=== PATIENT | male | born 1970 | race Caucasian/White ===

== ENCOUNTER 2017-05-23 14:31 | Emergency (ER) | payer BC ==
[2017-05-23 14:35] VITALS: BP 154/85
[2017-05-23] MEDS ORDERED: Colchicine 0.6 MG Tab PO ONE (14:41)
--- NOTE | 2017-05-23 15:07 | EDM.PDOC ---
ED HPI GENERAL MEDICAL PROBLEM - General Chief Complaint: Lower Extremity Injury/Pain Stated Complaint: ankle pain Time Seen by Provider: 05/23/17 14:38 Source of Information: Reports: Patient History Limitations: Reports: Other (very poor with history) - History of Present Illness INITIAL COMMENTS - FREE TEXT/NARRATIVE: Patient comes in by private vehicle for evaluation of pain on dorsal left foot. Says it started yesterday morning and he noticed it when he woke up from sleep. No specific trauma to area. Injured same part of foot years ago due to lawnmower. It usually is not a problematic area for him. Denies fevers/chills. No neuro changes. No previous similar episodes. Patient without any other complaints. O2 sat 93%. He is without sensation of SOB or respiratory complaints. - Related Data Allergies Allergy/AdvReac Type Severity Reaction Status Date / Time No Known Allergies Allergy Verified 02/19/16 12:45 Home Meds: Home Meds Colchicine [Colcrys] 0.6 mg PO ONETIME #1 tablet 05/23/17 [Rx] Enalapril [Vasotec] 10 mg PO DAILY 05/23/17 [History] Past Medical History HEENT History: Reports: Impaired Vision Cardiovascular History: Reports: Hypertension. Denies: Arrhythmia, Blood Clots/ VTE/DVT, CAD, Heart Murmur, High Cholesterol (status unknown), [place], Pacemaker Gastrointestinal History: Reports: Other (See Below) Other Gastrointestinal History: history of possible esophageal stenosis with recurrent foreign body lodging with only previous episode on 10/23/11 Genitourinary History: Reports: None. Denies: Chronic Renal Insuffiency, Renal Calculus, STD, Urinary Incontinence, UTI, Recurrent Musculoskeletal History: Reports: Fracture (avulsion fracture over the dorsal surface of the left foot secondary to a lawnmower accident at age 9). Denies: Arthritis, Back Pain, Chronic, Gout, Neck Pain, Chronic, Osteoarthritis, RA, SLE Neurological History: Reports: None. Denies: Cerebral Aneurysms, Concussion, CVA, Headaches, Chronic, Migraines, Seizure, TIA, Vertigo Psychiatric History: Reports: None. Denies: Abuse, Victim of, ADD, Anxiety, Depression, Psych Hospitalization(s), Suicide Attempt, Suicidal Ideation Hematologic History: Reports: None. Denies: Anemia, Blood Transfusion(s) Immunologic History: Reports: None. Denies: AIDS, HIV, SLE Oncologic (Cancer) History: Reports: None Dermatologic History: Reports: None. Denies: Eczema, Psoriasis - Infectious Disease History Infectious Disease History: Reports: None, Chicken Pox - Past Surgical History Head Surgeries/Procedures: Reports: None HEENT Surgical History: Reports: None. Denies: Adenoidectomy, Eye Surgery, Laser Surgery, Myringotomy w Tube(s), Naso-Sinus Surgery, Oral Surgery, Tonsillectomy Cardiovascular Surgical History: Reports: None. Denies: Varicose, Vascular Surgery Respiratory Surgical History: Reports: None. Denies: Lung Biopsies Male Surgical History: Reports: Circumcision (as an ). Denies: Vasectomy Endocrine Surgical History: Reports: None. Denies: Thyroid Biopsy Neurological Surgical History: Reports: None Musculoskeletal Surgical History: Reports: None. Denies: Amputation, Arthroscopic Procedure, Carpal Tunnel, Ganglion Cyst, ORIF Oncologic Surgical History: Reports: None Dermatological Surgical History: Reports: None - Past Imaging History Past Imaging History: Reports: None Social & Family History - Tobacco Use Smoking Status *Q: Never Smoker Second Hand Smoke Exposure: No - Caffeine Use Caffeine Use: Reports: Energy Drinks, Soda - Alcohol Use Days Per Week of Alcohol Use: 1 (No previous DWIs, problems with alcohol abuse, etc.) Number of Drinks Per Day: 2 (usually beer) Total Drinks Per Week: 2 - Recreational Drug Use Recreational Drug Use: No - Living Situation & Occupation Living situation: Reports: , Alone Occupation: Employed Review of Systems - Review of Systems Review Of Systems: ROS reveals no pertinent complaints other than HPI. ED EXAM, GENERAL - Physical Exam Exam: See Below Exam Limited By: No Limitations General Appearance: Alert, No Apparent Distress, Obese Eye Exam: Bilateral Eye: EOMI, PERRL Throat/Mouth: Normal Voice, No Airway Compromise Head: Atraumatic, Normocephalic Neck: Supple Respiratory/Chest: No Respiratory Distress Neurological: Alert, Oriented, No Motor/Sensory Deficits, Other (Has discomfort from left foot when walking. ) Psychiatric: No: Anxious, Depressed Mood, Flat Affect, Tearful Skin Exam: Warm, Dry, Other (Focal circular area of swelling, redness, mild warmth mid dorsal left foot. Nearby scar tissue noted from old lawnmower accident. No pustules/vesicles/drainage. Overlying skin intact. Foot and ankle otherwise non-tender. Good ROM. ) Course - Vital Signs Last Recorded V/S: Last Vital Signs Temp 36.9 C 05/23/17 14:34 Pulse 93 05/23/17 14:34 Resp 16 05/23/17 14:34 BP 154/85 H 05/23/17 14:34 Pulse Ox 93 L 05/23/17 14:34 - Orders/Labs/Meds Orders: Active Orders 24 hr Category Date Time Status Foot 2V Lt [CR] Stat Exams 05/23/17 14:40 Taken Labs: Laboratory Tests 05/23/17 Range/Units 15:15 Uric Acid 6.3 (2.6-7.2) mg/dL Meds: Medications Discontinued Medications Generic Name Dose Route Start Last Admin Trade Name Sandra PRN Reason Stop Dose Admin Colchicine 0.6 mg 05/23/17 14:41 05/23/17 14:58 Colcrys PO 05/23/17 14:42 0.6 mg ONETIME ONE Administration - Radiology Interpretation Free Text/Narrative:: Xray of foot shows residual bony damage from lawnmower incident vs bone spur in same area. - Re-Assessments/Exams Free Text/Narrative Re-Assessment/Exam: 05/23/17 15:15 Uncertain specific cause for focal redness/pain and swelling. May be secondary to gout. Does not appear to be infectious at this time. Conservative treatment for now and observe for changes. [employer] work slip completed. No work for two days. To follow up with [facility]/primary provider on Wednesday for recheck. Numerous precautions given to patient prior to discharge. He is to return to the ER if any obvious signs of infection develop. Departure - Departure Time of Disposition: 15:30 Disposition: Home, Self-Care 01 Condition: Good Clinical Impression: Left foot pain - Discharge Information Prescriptions: Colchicine [Colcrys] 0.6 mg PO ONETIME #1 tablet Instructions: Gout, [id number] Referrals: PCP,Unknown [Primary Care Provider] - Forms: ED Department Discharge Additional Instructions: Call and make appointment to be followed up and rechecked at clinic on Wednesday. Watch for changes. If you develop fever, drainage, or streaking of red from bump of left foot, get seen again in ER. Take second pill tomorrow morning after you pick it up from the pharmacy. Activity as tolerated. - My Orders Last 24 Hours: My Active Orders 05/23/17 14:40 Foot 2V Lt [CR] Stat - Assessment/Plan Last 24 Hours: My Active Orders 05/23/17 14:40 Foot 2V Lt [CR] Stat
== END 2017-05-23 14:51 | disposition home or self-care (01) ==
LOC: LL.ED 14:31
DX: M79.672 Pain in left foot (principal); I10 Essential (primary) hypertension
CPT/HCPCS: 36415; 73620; 84550; 99283; A9270

== ENCOUNTER 2017-11-22 13:06 | Emergency (ER) | payer BC ==
--- NOTE | 2017-11-22 13:16 | EDM.PDOC ---
ED HPI GENERAL MEDICAL PROBLEM - General Chief Complaint: Gastrointestinal Problem Stated Complaint: cant swallow/ food stuck in throat Time Seen by Provider: 11/22/17 13:15 Source of Information: Reports: Patient, Old Records ([facility] chart/EMR) History Limitations: Reports: No Limitations - History of Present Illness INITIAL COMMENTS - FREE TEXT/NARRATIVE: Patient with a history of severe dysphagia without aspiration with symptoms starting at about 11 AM at work this morning after he ate a meatball. He did have one episode of emesis subsequent to this event with no current nausea, however he is uncertain whether or not he is still having problems with dysphagia. He did have a similar episode with evaluation by me in this facility on 02/19/16, however he never did follow-up with his regular provider concerning this problem. No recent history of abdominal pain, heartburn, diarrhea, melena, gross hematochezia, or any food intolerance, including fatty foods, etc. with normal bowel movement yesterday. The patient denies any chest pain/pressure, heart flutter, dizziness, orthostasis, orthopnea, diaphoresis, paresthesias, recent decreased exercise tolerance, or any other anginal-type symptoms. No recent history of abdominal pain, heartburn, nausea, diarrhea, melena, gross hematochezia, or any food intolerance, including fatty foods, etc.. He denies any pain or discomfort Onset: Today, Sudden Onset Date: 11/22/17 Onset Time: 11:00 Duration: Constant, Improving Location: Reports: Other (No pain) Quality: Reports: Same as Previous Episode Improves with: Reports: None Worsens with: Reports: None Context: Reports: Other (As above) Associated Symptoms: Reports: Nausea/Vomiting. Denies: Confusion, Chest Pain, Cough, Diaphoresis, Fever/Chills, Loss of Appetite, Malaise, Seizure, Shortness of Breath, Syncope, Weakness Treatments PHARM SPEC: Reports: Other (see below) (None) - Related Data Allergies Allergy/AdvReac Type Severity Reaction Status Date / Time No Known Allergies Allergy Verified 11/22/17 13:13 Home Meds: Home Meds Enalapril [Vasotec] 10 mg PO DAILY 05/23/17 [History] Omeprazole 20 mg PO BIDAC #60 cap.sr 11/22/17 [Rx] Past Medical History HEENT History: Reports: Impaired Vision, Other (See Below). Denies: Allergic Rhinitis, Cataract, Glaucoma, Hard of Hearing, Macular Degeneration, Retinal Detachment Other HEENT History: Patient wears glasses Cardiovascular History: Reports: Hypertension, Other (See Below). Denies: Afib , Aneurysm, Arrhythmia, Blood Clots/VTE/DVT, CAD, Heart Murmur, High Cholesterol , [place], Pacemaker, Syncope Other Cardiovascular History: He does not know his cholesterol status Respiratory History: Reports: None. Denies: Asthma, COPD, Intubation, Previous , PE, Pneumothorax, Sleep Apnea Gastrointestinal History: Reports: GERD, Other (See Below). Denies: Celiac Disease, Cholelithiasis, Chronic Constipation, Chronic Diarrhea, Fecal Incontinence, Gastritis, GI Bleed, Hepatitis, Hiatal Hernia, Irritable Bowel Syndrome, Jaundice, Pancreatitis, PUD Other Gastrointestinal History: history of possible esophageal stenosis and recurrent dysphasia with recurrent foreign body lodging, including food, medications, etc. with previous episode on 10/23/11 and then again on 02/19/16 Genitourinary History: Reports: None. Denies: BPH, Chronic Renal Insuffiency, Renal Calculus, STD, Urinary Incontinence, UTI, Recurrent Musculoskeletal History: Reports: Fracture (avulsion fracture over the dorsal surface of the left foot secondary to a lawnmower accident at age 9), Other ( See Below). Denies: Arthritis, Back Pain, Chronic, Gout, Neck Pain, Chronic, Osteoarthritis, RA, SLE Other Musculoskeletal History: Avulsion fracture over the dorsal surface of the left foot secondary to lawnmower accident at age 9 Neurological History: Reports: None. Denies: Cerebral Aneurysms, Concussion, CVA, Headaches, Chronic, Migraines, Seizure, TIA, Vertigo Psychiatric History: Reports: None. Denies: Abuse, Victim of, ADD, Anxiety, Depression, Psych Hospitalization(s), Suicide Attempt, Suicidal Ideation Endocrine/Metabolic History: Reports: Obesity/BMI 30+. Denies: Diabetes, Type I , Diabetes, Type II, Hypothyroidism, IDDM Hematologic History: Reports: None. Denies: Anemia, Blood Transfusion(s) Immunologic History: Reports: None. Denies: AIDS, HIV, SLE Oncologic (Cancer) History: Reports: None. Denies: Basal Cell Carcinoma, Hodgkin's Lymphoma, Leukemia, Malignant Melanoma, Non-Hodgkin's Lymphoma, Squamous Cell Carcinoma Dermatologic History: Reports: None. Denies: Eczema, Psoriasis - Infectious Disease History Infectious Disease History: Reports: Chicken Pox. Denies: C-Difficile, Measles , Meningitis, Mononucleosis, MRSA, Mumps, Pertussis (Whooping Cough), Rheumatic Fever, Rubella, Scarlet Fever, Shingles, VRE - Past Surgical History Head Surgeries/Procedures: Reports: None HEENT Surgical History: Reports: None. Denies: Adenoidectomy, Eye Surgery, Laser Surgery, Myringotomy w Tube(s), Naso-Sinus Surgery, Oral Surgery, Tonsillectomy Cardiovascular Surgical History: Reports: None. Denies: Varicose, Vascular Surgery Respiratory Surgical History: Reports: None. Denies: Lung Biopsies GI Surgical History: Reports: None. Denies: Appendectomy, Cholecystectomy, Colonoscopy, EGD, Hernia, Abdominal, Hernia, Inguinal, Hernia Repair/Other, Polypectomy Male Surgical History: Reports: Circumcision, Other (See Below). Denies: Vasectomy Other Male Surgeries/Procedures: Circumcision as an infant Endocrine Surgical History: Reports: None. Denies: Thyroid Biopsy Neurological Surgical History: Reports: None. Denies: C-Spine, Discectomy, Laminectomy, Lumbar Spine, Sacral Spine, Spinal Fusion, Vertebroplasty Musculoskeletal Surgical History: Reports: None. Denies: Amputation, Arthroscopic Procedure, Carpal Tunnel, Ganglion Cyst, Joint Replacement, ORIF, Shoulder Surgery Oncologic Surgical History: Reports: None Dermatological Surgical History: Reports: None - Past Imaging History Past Imaging History: Reports: None Social & Family History - Tobacco Use Smoking Status *Q: Never Smoker Used Tobacco, but Quit: No Smoking Cessation Information Provided To Patient: No Second Hand Smoke Exposure: No Second Hand Smoke Education Provided: No - Caffeine Use Caffeine Use: Reports: None. Denies: Coffee, Energy Drinks (He stopped using energy drinks secondary to his hypertension), Soda (He stopped using soda secondary to his hypertension), Other - Alcohol Use Alcohol Use History: Yes Days Per Week of Alcohol Use: 1 (No previous DWIs, problems with alcohol abuse, etc.) Number of Drinks Per Day: 2 (usually beer) Total Drinks Per Week: 2 Alcohol Use in Last Twelve Months: Yes Alcohol Use Frequency: Socially - Recreational Drug Use Recreational Drug Use: No Drug Use in Last 12 Months: No Recreational Drug Type: Denies: Amphetamines (Speed), Cocaine, Heroin, Inhalants (Glues, Solvents, Aerosols), LSD (Acid), Marijuana/Hashish, Methamphetamine, Morphine - Living Situation & Occupation Living situation: Reports: (1999, 2 children), Alone Occupation: Employed ([employer]) ED ROS GENERAL - Review of Systems Review Of Systems: ROS reveals no pertinent complaints other than HPI. ED EXAM, GI/ABD - Physical Exam Exam: See Below Exam Limited By: No Limitations General Appearance: Alert, WD/WN, No Apparent Distress Eyes: Bilateral: Normal Appearance (No nystagmus), EOMI (PERRLA) Throat/Mouth: Normal Lips, Normal Oropharynx, Normal Voice, No Airway Compromise. No: Normal Teeth (Multiple carious and broken teeth into the gumline with no acute abscesses or drainage), Normal Gums, Dysphagia, Inflammation, Perioral Cyanosis Head: Atraumatic, Normocephalic. No: Facial Swelling, Facial Tenderness, Sinus Tenderness Neck: Normal Inspection, Supple, Non-Tender, Full Range of Motion. No: Lymphadenopathy (L), Lymphadenopathy (R), Thyromegaly Respiratory/Chest: No Respiratory Distress, Lungs Clear, Normal Breath Sounds, No Accessory Muscle Use, Chest Non-Tender. No: Pleural Rub, Retractions Cardiovascular: Normal Peripheral Pulses, Regular Rate, Rhythm, No Edema, No Gallop, No JVD, No Murmur, No Rub. No: Gallop/S3, Gallop/S4, Friction Rub GI/Abdominal Exam: Normal Bowel Sounds, Soft, Non-Tender, No Organomegaly, No Distention, No Abnormal Bruit, No Mass, Pelvis Stable. No: Guarding (Male) Exam: Deferred Rectal (Males) Exam: Deferred Back Exam: Normal Inspection, Full Range of Motion. No: CVA Tenderness (L), CVA Tenderness (R), Muscle Spasm Extremities: Normal Inspection, Normal Range of Motion, Non-Tender, No Pedal Edema, Normal Capillary Refill. No: Zuhair's Sign Neurological: Alert, Oriented, CN II-XII Intact, Normal Cognition, Normal Gait, No Motor/Sensory Deficits Skin Exam: Warm, Dry, Intact, Normal Color, No Rash. No: Diaphoretic, Rash, Wound/Incision Lymphatic: No Adenopathy Course - Vital Signs Last Recorded V/S: Last Vital Signs Temp 36.6 C 11/22/17 13:08 Pulse 92 11/22/17 13:08 Resp 19 11/22/17 13:08 BP 130/90 11/22/17 13:08 Pulse Ox 96 11/22/17 13:08 Vital Signs - 24 hr 11/22/17 13:08 Temperature [ 36.6 C Temporal] Pulse, 92 Peripheral [ Right Pulse Oximetry] Respiratory 19 Rate Blood Pressure 130/90 [Left Upper Arm ] O2 Sat by Pulse 96 Oximetry - Orders/Labs/Meds Orders: Active Orders 24 hr Category Date Time Status Peripheral IV Care [RC] . DIRECTED Care 11/22/17 13:17 Active Sodium Chloride 0.9% [Saline Flush] Med 11/22/17 13:17 Active 10 ml FLUSH ASDIRECTED PRN Obtain Past Medical Record [OM.PC] Routine Oth 11/22/17 13:16 Active Peripheral IV Insertion Adult [OM.PC] Routine Oth 11/22/17 13:17 Ordered Medication Orders Sodium Chloride (Saline Flush) 10 ml FLUSH ASDIRECTED PRN PRN Reason: Keep Vein Open Last Admin: 11/22/17 13:40 Dose: 10 ml Labs: None Meds: Medications Generic Name Dose Route Start Last Admin Trade Name Freq PRN Reason Stop Dose Admin Sodium Chloride 10 ml 11/22/17 13:17 11/22/17 13:40 Saline Flush FLUSH 10 ml ASDIRECTED PRN Administration Keep Vein Open Discontinued Medications Generic Name Dose Route Start Last Admin Trade Name Freq PRN Reason Stop Dose Admin Famotidine 40 mg 11/22/17 13:18 11/22/17 13:36 Pepcid IVPUSH 11/22/17 13:19 40 mg ONETIME ONE Administration Glucagon 1 mg 11/22/17 13:17 Glucagen IVPUSH 11/22/17 13:18 ONETIME ONE - Radiology Interpretation Free Text/Narrative:: None Departure - Departure Time of Disposition: 14:40 Disposition: Home, Self-Care 01 Condition: Good Clinical Impression: Caries Dysphagia Qualifiers: Dysphagia type: pharyngoesophageal phase Qualified Code(s): R13.14 - Dysphagia , pharyngoesophageal phase Hypertension Qualifiers: Hypertension type: essential hypertension Qualified Code(s): I10 - Essential ( primary) hypertension - Discharge Information Prescriptions: Omeprazole 20 mg PO BIDAC #60 cap.sr Instructions: Dysphagia, Dysphagia Diet Level 2, Mechanically Altered Referrals: Rancho Jolley PA [Primary Care Provider] - Forms: ED Department Discharge Additional Instructions: 1. Follow-up with your regular provider BLAYNE for preoperative history and physical for recommended EGD with likely concomitant esophageal dilatation 2. Tylenol 650 mg by mouth every 4 hours and/or OTC ibuprofen 2-3 tabs by mouth every 6 hours with food as directed./needed. 3. Chew food thoroughly as discussed/directed 4. Continue to observe your blood pressures closely through your regular provider 5. Work excuse- See Form 6. Follow-up with your dentist BLAYNE as discussed - Problem List & Annotations (1) Dysphagia SNOMED Code(s): 45686562 Code(s): R13.10 - DYSPHAGIA, UNSPECIFIED Status: Acute Priority: High Current Visit: Yes Onset Date: 02/19/16 Annotation/Comment:: Recurrent dysphagia as above. Initial IV glucagon was ordered, however this was discontinued secondary to complete resolution of dysphagia without further intervention. High-dose IV Pepcid was given as GI prophylaxis, however. Note that the patient was able to swallow fluids, moist bread, crackers, etc. prior to discharge without difficulty. He does have a previous history of problems swallowing even his medications as above and does crush his medications at this time. Close follow-up by his regular provider as per discharge instructions with EGD with probable esophageal dilatation recommended. The patient was advised to eat slowly and chew his food completely. [employer]cat/work excuse completed Qualifiers: Dysphagia type: pharyngoesophageal phase Qualified Code(s): R13.14 - Dysphagia, pharyngoesophageal phase (2) Caries SNOMED Code(s): 76724800 Code(s): K02.9 - DENTAL CARIES, UNSPECIFIED Status: Chronic Priority: Medium Current Visit: Yes Annotation/Comment:: Followup with his dentist BLAYNE with caries also present at time of his October 2011 and 02/19/16 emergency room evaluations in this facility. The importance of dental hygiene, etc. was discussed including possible SBE, etc. (3) Hypertension SNOMED Code(s): 00219992 Code(s): I10 - ESSENTIAL (PRIMARY) HYPERTENSION Status: Chronic Priority : Medium Current Visit: Yes Annotation/Comment:: Blood pressures stable in the emergency room. Note no routine preventative healthcare in this patient. Update yearly HCM/preoperative history and physical, etc. BLAYNE discussed with the patient with close followup of his blood pressures by his regular provider Qualifiers: Hypertension type: essential hypertension Qualified Code(s): I10 - Essential (primary) hypertension - Problem List Review Problem List Initiated/Reviewed/Updated: Yes - My Orders Last 24 Hours: My Active Orders 11/22/17 13:16 Obtain Past Medical Record [OM.PC] Routine 11/22/17 13:17 Peripheral IV Care [RC] . DIRECTED Sodium Chloride 0.9% [Saline Flush] 10 ml FLUSH ASDIRECTED PRN Peripheral IV Insertion Adult [OM.PC] Routine - Assessment/Plan Last 24 Hours: My Active Orders 11/22/17 13:16 Obtain Past Medical Record [OM.PC] Routine 11/22/17 13:17 Peripheral IV Care [RC] . DIRECTED Sodium Chloride 0.9% [Saline Flush] 10 ml FLUSH ASDIRECTED PRN Peripheral IV Insertion Adult [OM.PC] Routine Assessment:: As above Plan: As above. Extensive precautions were given to the patient, who is in agreement with the treatment plan. See Patient Instructions for further treatment and plan.
[2017-11-22] MEDS ORDERED: Glucagon,Human Recombinant 1 MG Vial IVPUSH ONE (13:17)
[2017-11-22] MEDS ORDERED: Sodium Chloride 0.9% 10 ML Syringe FLUSH PRN (13:17)
[2017-11-22] MEDS ORDERED: Famotidine 20 MG/2 ML SDV IVPUSH ONE (13:18)
[2017-11-22 19:43] VITALS: BP 117/70
== END 2017-11-22 14:40 | disposition home or self-care (01) ==
LOC: LL.ED 13:06
DX: R13.14 Dysphagia, pharyngoesophageal phase (principal); K02.9 Dental caries, unspecified; I10 Essential (primary) hypertension; Z79.899 Other long term (current) drug therapy
CPT/HCPCS: 96374; 99284; J7050; S0028

== ENCOUNTER 2017-12-16 11:36 | Day surgery (SDC) | payer BC ==
[2017-12-16] MEDS ORDERED: Lactated Ringers 1,000 ML IV SCH (11:45)
[2017-12-16] MEDS ORDERED: Sodium Chloride 0.9% 10 ML Syringe FLUSH PRN (11:45)
[2017-12-16] MEDS ORDERED: fentaNYL 100 MCG/2 ML SDV ONE ×2 (13:09→13:13)
--- NOTE | 2017-12-16 13:09 | PCM.PN ---
- General Info Date of Service: 12/16/17 - Review of Systems Systems Review Comment:: 47-year-old male referred by Rancho Bejarano for upper endoscopy. He has a history of dysphasia and has had food get stuck while swallowing. The last food item was a meatball several days ago. He has never had previous esophageal dilation. He is medically stable to proceed today with no significant recent changes in his health status. I discussed the proposed upper endoscopy and possible esophageal dilation with the patient. Risks such as esophageal injury or reviewed. He appears to understand and agrees to proceed. - Patient Data Vitals - Most Recent: Last Vital Signs Temp Pulse 68 12/16/17 12:15 Resp 20 12/16/17 12:15 BP 121/86 12/16/17 12:15 Pulse Ox 100 12/16/17 12:15 Weight - Most Recent: 113.398 kg Med Orders - Current: Current Medications Lactated Ringer's (Ringers, Lactated) 1,000 mls @ 70 mls/hr IV ASDIRECTED CHANTEL Last Admin: 12/16/17 12:25 Dose: 70 mls/hr Sodium Chloride (Saline Flush) 10 ml FLUSH ASDIRECTED PRN PRN Reason: Keep Vein Open - Problem List Review Problem List Initiated/Reviewed/Updated: Yes - Assessment Assessment:: Dysphasia - Plan Plan:: EGD D with possible dilation
[2017-12-16] MEDS ORDERED: Propofol 200 MG/20 ML SDV ONE ×2 (13:10→13:13)
[2017-12-16] MEDS ORDERED: Midazolam 1 MG/ML 2 ML SDV ONE ×4 (13:10→13:13)
[2017-12-16] MEDS ORDERED: Lidocaine 2% 5 ML SDV ONE (13:13)
--- NOTE | 2017-12-16 13:48 | PCM.OPNOTE ---
- General Post-Op/Procedure Note Date of Surgery/Procedure: 12/16/17 Operative Procedure(s): EGD with Balloon Esophageal Dilation Findings: Distal Esophageal Stricture with mild irritation at GE Jct Inflammation of Duodenal Mucosa in 1st portion Pre Op Diagnosis: Dysphagia Post-Op Diagnosis: Esophageal stricture. Duodenitis Anesthesia Technique: MAC Primary Surgeon: Rk Weber Pathology: none Output, Urine Amount: 0 EBL in mLs: 3 Complications: None Condition: Good
[2017-12-16 17:35] VITALS: BP 110/75
--- NOTE | 2017-12-16 19:28 | OR ---
Date of Procedure: 12/16/2017 PREOPERATIVE DIAGNOSIS: Dysphagia. POSTOPERATIVE DIAGNOSES: 1. Esophageal stricture. 2. Duodenitis. OPERATION PERFORMED: Esophagogastroduodenoscopy with balloon esophageal dilation. INDICATIONS FOR SURGERY: This 47-year-old male has had increasing difficulty with swallowing food including episodes where food has become lodged in his esophagus. He is referred for upper endoscopy with dilation. FINDINGS: In the lower part of the esophagus, the patient has a mild-to- moderate stricture near the GE junction. This did not appear to be associated with any evidence of extrinsic or intrinsic mass. There was some mild irritation of the mucosa near the GE junction, suggestive of reflux esophagitis. The patient also has a moderate degree of inflammation of the mucosa in the first portion of the duodenum without visible ulceration. The remainder of the exam appeared normal. DESCRIPTION OF PROCEDURE: The patient was taken to the operating room. He was given intravenous sedation and his throat was topically anesthetized. The esophagus was then intubated with the Olympus gastroscope, it was carefully advanced under direct visualization through the esophagus, stomach, and into the duodenum where examination to the 3rd portion was performed. After carefully examining the duodenum, the scope was withdrawn back up into the stomach, where full examination including retroflexed examination of the fundus was performed. The GE junction was then carefully examined and this area was dilated with the [email or web address] esophageal dilating balloon to a size of 54-[place]. The dilation appeared to be tolerated well by the patient. Examination of the dilated area after the procedure was performed showed evidence of heme, suggesting a good dilation but without evidence of any esophageal injury. The remainder of the esophagus was then re-examined as the scope was withdrawn, and the patient was then awakened and taken from the operating room in satisfactory condition. ESTIMATED BLOOD LOSS: 3 mL. COMPLICATIONS: None. PROGNOSIS: Good. KAREN Weber MD /[id number]
== END 2017-12-16 15:20 | disposition home or self-care (01) ==
LOC: LL.SDS 11:36
PROVIDERS: ATTEND Surgery
DX: K22.2 Esophageal obstruction (principal); K29.80 Duodenitis without bleeding; I10 Essential (primary) hypertension; Z79.899 Other long term (current) drug therapy
CPT/HCPCS: 43233; J2250; J2704; J3010; J7120